=== PATIENT | female | born 1950 | race Caucasian/White ===

== ENCOUNTER 2020-06-06 01:52 | Outpatient (CLI) | payer MEDICARE, OTHER, SELFPAY ==
[2020-06-06 18:09] LABS: SARS-CoV-2 RNA PCR Negative
== END 2020-06-06 01:53 | disposition home or self-care (01) ==
LOC: ANHCOVIDDT 01:53
PROVIDERS: PCP Family Medicine; Visit Provider Otolaryngology
DX: Z01.818 Encounter for other preprocedural examination (principal); Z11.59 Encounter for screening for other viral diseases
CPT/HCPCS: 87635; C9803; U0003

== ENCOUNTER 2020-06-09 03:08 | Day surgery (SDC) | payer MEDICARE, OTHER, SELFPAY ==
--- NOTE | 2020-06-03 06:57 | PM.HPGS ---
History of Present Illness History of Present Illness Consent: Risks, benefits, and alternatives have been discussed and questions answered. Patient agrees to proceed with procedure. Chief complaint: Tongue Lesion Narrative: Bethany Hummel is a 69 year old female she has a rounded the lesion on the tip of the right side of her tongue Review of Systems Review of Systems: All systems reviewed & are unremarkable except as noted in HPI and below PMFSH Social History Social History Social History: The patient is and lives with her spouse in [place]. She is a retired mental health therapist. She designates her , Kaz, as her surrogate decision maker and she wishes to be a full code. Her primary care provider is Dr. Marina Elder. She is a lifelong nonsmoker and denies alcohol and drug abuse. Meds Home Medications and Allergies Home Medications Medication Instructions Recorded Confirmed Type Dulera 2 puff INHALATION HS 10/15/19 10/30/19 History Fish Oil Extra Strength 2 cap PO DAILY 10/15/19 10/30/19 History Multiple Vitamin, Womens 0.5 tablet PO DAILY 10/15/19 10/30/19 History PreserVision AREDS-2 1 tablet PO BID 10/15/19 10/30/19 History albuterol sulfate [ProAir HFA] 2 puff INHALATION PRN PRN 10/15/19 10/30/19 History cholecalciferol (vitamin D3) 5,000 unit PO DAILY 10/15/19 10/30/19 History cranberry 400 mg PO BID 10/15/19 10/30/19 History fluticasone propionate 2 spray INTRANASAL DAILY 10/15/19 10/30/19 History glucosamine sulfate [Glucosamine] 500 mg PO BID 10/15/19 10/30/19 History melatonin 5 mg PO HS 10/15/19 10/30/19 History montelukast [Singulair] 10 mg PO HS 10/15/19 10/30/19 History policosanol combination no.3 20 mg PO DAILY 10/15/19 10/30/19 History rosuvastatin 40 mg PO HS 10/15/19 10/30/19 History qbvfdzjnt-[id number]-KR-xcaemjyhuaq 50 cap PO DAILY 10/15/19 10/30/19 History vit B cplxC 10-blnxgtf-fay-Q10 1 tablet PO DAILY 10/15/19 10/30/19 History acetaminophen 1,000 mg PO Q6HR #90 tablet 10/31/19 Rx aspirin 325 mg PO Q12HR #90 tablet 10/31/19 Rx celecoxib [Celebrex] 200 mg PO BIDWM #90 cap 10/31/19 Rx oxycodone 5 mg PO Q4H #60 cap 10/31/19 Rx polyethylene glycol 3350 [Miralax] 17 g PO QAM #30 ea 10/31/19 Rx sennosides-docusate sodium [Senna 2 tab-cap PO BID #60 tablet 10/31/19 Rx with Docusate Sodium] levothyroxine 25 mcg tablet 25 mcg PO DAILY #90 tablet 02/24/20 Rx alprazolam 0.25 mg tablet 0.25 mg PO DAILY PRN #30 tablet 04/30/20 Rx Allergies Allergy/AdvReac Type Severity Reaction Status Date / Time No Known Allergies Allergy Verified 05/27/20 13:34 Assessment and Plan Additional Plan plan is for excision lesion tip of tongue and primary closure
[2020-06-04 12:31] VITALS: BMI 30.9
--- NOTE | 2020-06-09 06:23 | WPDHPUPDATE1 ---
History and Physical Update Update Date/Time: 06/09/20 06:23 History and Physical has been reviewed, including an updated exam of the patient. There are NO changes in the patient's condition. Risks, benefits, and alternatives have been discussed and questions answered. Patient agrees to proceed with procedure.
[2020-06-09 07:49] VITALS: BP 140/60; PULSE 61; TEMP 36.8; O2SAT 97
[2020-06-09] MEDS: LACTATED RINGERS 1,000 ML 30 ML IV CONT (08:11)
--- NOTE | 2020-06-09 08:58 | P.PNAN_ITS ---
Anes - Initial Pre Proc Eval Procedure: Operation Date: 06/09/20 09:30 Proposed Procedures p Excision Lesion Tongue - Alexis Samuel MD Date/Time: 06/09/20 08:58 Surgeon: Alexis Samuel MD Pre Op Diagnosis: Tongue Lesion Patient Data Age: 69 Gender: F Height: 5 ft 6 in Weight: 90.3 kg Last Vital Signs Temp 98.2 F 06/09/20 07:49 Pulse 61 06/09/20 07:49 BP 140/60 06/09/20 07:49 Pulse Ox 97 06/09/20 07:49 Allergies Allergy/AdvReac Type Severity Reaction Status Date / Time No Known Allergies Allergy Verified 06/04/20 12:17 Home Medications Medication Instructions Recorded Confirmed Type Dulera 2 puff INHALATION HS 10/15/19 06/09/20 History Fish Oil Extra Strength 2 cap PO DAILY 10/15/19 06/09/20 History Multiple Vitamin, Womens 0.5 tablet PO BID 10/15/19 06/09/20 History PreserVision AREDS-2 1 tablet PO BID 10/15/19 06/09/20 History albuterol sulfate [ProAir HFA] 2 puff INHALATION PRN PRN 10/15/19 06/09/20 History cholecalciferol (vitamin D3) 5,000 unit PO DAILY 10/15/19 06/09/20 History cranberry 400 mg PO BID 10/15/19 06/09/20 History fluticasone propionate 2 spray INTRANASAL DAILY 10/15/19 06/09/20 History glucosamine sulfate [Glucosamine] 500 mg PO BID 10/15/19 06/09/20 History melatonin 5 mg PO HS 10/15/19 06/09/20 History montelukast [Singulair] 10 mg PO HS 10/15/19 06/09/20 History rosuvastatin 40 mg PO HS 10/15/19 06/09/20 History wueucwqlr-[id number]-PM-mluizmvsajp 50 cap PO DAILY 10/15/19 06/09/20 History vit B cplxC [id number] 1 tablet PO DAILY 10/15/19 06/09/20 History levothyroxine 25 mcg tablet 25 mcg PO DAILY #90 tablet 02/24/20 06/09/20 Rx alprazolam 0.25 mg PO PRN PRN 06/04/20 06/09/20 History aspirin [Adult Low Dose Aspirin] 81 mg PO HS 06/04/20 06/09/20 History Patient hx anesthesia problems: none Family hx anesthesia problems: none [facility] Social History Social History Social History: The patient is and lives with her spouse in [place]. She is a retired mental health therapist. She designates her , Kaz, as her surrogate decision maker and she wishes to be a full code. Her primary care provider is Dr. Marina Elder. She is a lifelong nonsmoker and denies alcohol and drug abuse. Smoking status: Never smoker Alcohol intake: current Drinks per week: 4 Alcohol use details: WINE Living arrangements: with family Spiritual care concerns: No Anes - Eval Final PreProcedure Day of Procedure 06/09/20 08:58 Patient weight: obese Heart: regular rate and rhythm Lungs: clear to auscultation Airway: Mallampati scale class II Neurological: alert and oriented Last oral intake: >/= 8 hours ASA classification: III Emergent: no Anesthetic plan: proceed Anesthesia type and monitoring: general ETT and standard monitoring Informed Consent: The patient's anesthetic plan and its attendant risks and benefits were discussed with the patient/family/POA. Questions were solicited and answers provided to the satisfaction of the patient/family/POA.
[2020-06-09] MEDS: LIDO 1%/EPINEPHRINE 1:100,000 20 ML VIAL 4 ML INFILTRATE (09:41)
--- NOTE | 2020-06-09 09:46 | PM.PROC ---
Procedure Note - Detailed Date of procedure: 06/09/20 Pre-op diagnosis: Tongue Lesion Lesion of the tip of the tongue Post-op diagnosis: same Procedure performed: Procedure performed was excision lesion tip of tongue Description of procedure: Patient was prepped and draped in general anesthesia the tip of the tongue with the with what looked like a hematoma type cyst was injected with xylocaine with adrenaline with the Bovie at 20 this cyst was removed in its entirety hemostasis was obtained with electrocautery and closed with of 3 0 chromic sutures Preop diagnosis lesion tip of the tongue postop diagnosis same anesthesia general neighbor procedure excision tip of tongue lesion findings a cystic lesion tip of the tongue Anesthesia: GLMA Surgeon: Alexis Samuel MD Estimated blood loss (mL): 5 Drains: No Packing: No Pathology: yes Complications: No immediate complications Condition: stable Disposition: PACU Findings: He met hematoma type cyst tip of the tongue
[2020-06-09 09:52] VITALS: BP 131/55; PULSE 70; RESP 16; TEMP 36.3; O2SAT 99
[2020-06-09 10:00] VITALS: BP 111/61; PULSE 65; RESP 20; O2SAT 100
[2020-06-09 10:15] VITALS: BP 122/64; PULSE 53; RESP 14; O2SAT 97
[2020-06-09 10:18] VITALS: BP 136/73; PULSE 79; RESP 14
[2020-06-09 10:40] VITALS: BP 120/50; PULSE 65; RESP 14
== END 2020-06-09 11:00 | disposition home or self-care (01) ==
PROVIDERS: PCP Family Medicine; Visit Provider Otolaryngology
PROC: (CPT 40810; principal; 2020-06-09 09:30)
DX: K14.8 Other diseases of tongue (principal); Z79.82 Long term (current) use of aspirin; E66.9 Obesity, unspecified; Z68.32 Body mass index [BMI] 32.0-32.9, adult
CPT/HCPCS: 41112; 88305; A9270; J0330; J1100; J1200; J2405; J2704; J3010; J7120

== ENCOUNTER 2020-11-12 09:43 | Outpatient (CLI) | payer MEDICARE, OTHER, SELFPAY ==
--- NOTE | ~2020-11-12 | MM_ITS ---
EXAMINATION: MM screening [facility] BI w mata HISTORY: Screening mammogram TECHNIQUE: Craniocaudal and mediolateral oblique 3-D tomosynthesis images were obtained and synthetic 2-D images were generated. CAD analysis was submitted and interpreted. COMPARISON: 08/29/2019, 08/23/2019, 02/16/2018, 11/10/2015 BREAST PARENCHYMAL COMPOSITION: There are scattered areas of fibroglandular density. FINDINGS: There is stable focal asymmetry in the subareolar aspect of the left breast. There is no ev idence of suspicious mass, calcification, or architectural distortion to suggest malignancy in either breast. There has been no suspicious interval change. IMPRESSION: 1. No mammographic evidence of malignancy. 2. Recommend routine screening mammography in one year. BI-RADS Category 2: Benign finding(s). Reviewed, dictated and finalized at location A. R MACHINE OPERATOR
== END 2020-11-12 09:44 | disposition home or self-care (01) ==
PROVIDERS: PCP Family Medicine; Visit Provider Family Medicine
DX: Z12.31 Encounter for screening mammogram for malignant neoplasm of breast (principal)
CPT/HCPCS: 77063; 77067

== ENCOUNTER 2020-12-01 07:54 | Outpatient (CLI) | payer MEDICARE, OTHER, SELFPAY ==
--- NOTE | ~2020-12-01 | DEXA_ITS ---
Bone Density Report Name: Bethany Hummel Age: 69 Sex: Female Ethnicity: White Date of : 1950 Indication: osteopenia; prior fracture; asthma or emphysema; Referring Provider: Marina Elder Study: Bone densitometry was performed. Exam Date: December 01, 2020 Accession number: [id number] Bone Density: Region BMD T-score Z-score Classification AP Spine (L1, L2, L3) 1.014 0.0 1.9 Normal Femoral Neck (Left) 0.594 -2.3 -0.6 Osteopenia Total Hip (Left) 0.804 -1.1 0.3 Osteopenia Total Hip Bilateral Avg 0.800 -1.2 0.3 Osteopenia Femoral Neck (Right) 0.648 -1.8 -0.1 Osteopenia Total Hip (Right) 0.795 -1.2 0.2 Osteopenia World Health Organization criteria for BMD impression classify patients as: Normal (T-score at or above -1.0), Osteopenia (T-score between -1.0 and -2.5), or Osteoporosis (T-score at or below -2.5). 10-year Fracture Risk(1): Major Osteoporotic Fracture 19% Hip Fracture 3.8% Reported Risk Factors: [place] (), Neck BMD=0.594, BMI=33.0, previous fracture (1) FRAX(R) Version 3.08. Fracture probability calculated for an untreated patient. Fracture probability may be lower if the patient has received treatment. Previous Exams: Region Exam Age BMD T-score BMD Change BMD Change Date g/cm2 vs Baseline vs Previous AP Spine(L1, L2, L3) 12/01/2020 69 1.014 0.0 -0.115(-10.2%) 0.036(3.7%)* 02/16/2018 67 0.978 -0.4 -0.151(-13.4%) -0.151(-13.4%) 09/28/2004 53 1.128 1.0 Total Hip(Left) 12/01/2020 69 0.804 -1.1 -0.191(-19.2%) 0.003(0.4%) 02/16/2018 67 0.801 -1.2 -0.194(-19.5%) -0.194(-19.5%) 09/28/2004 53 0.995 0.4 Total Hip(Right) 12/01/2020 69 0.795 -1.2 -0.210(-20.9%) -0.087(-9.9%)* 02/16/2018 67 0.883 -0.5 -0.123(-12.2%) -0.123(-12.2%) 09/28/2004 53 1.006 0.5 *Denotes significance at 95% confidence level, LSC for AP Spine = 0.022 g/cm2, LSC for Total Hip = 0.027 g/cm2 Clinical Information Provided by Patient: Has had a low trauma fracture Has used the following medications: Vitamin D Has the following medical conditions: Asthma or Emphysema Patient maximum height was 65 Menopause Age: 51 Drinks caffeinated beverages Onset of menses at age 15 Number of children 2 Impression: The patient has low bone mass, based on the Left Femoral Neck T-score. The patient has an estimated ten-year risk of hip fracture of 3.8% and an estimated ten-year risk of major fracture of 19%, based
== END 2020-12-01 07:55 | disposition home or self-care (01) ==
LOC: ANHIMG 07:57
PROVIDERS: PCP Family Medicine; Visit Provider Family Medicine
DX: Z78.0 Asymptomatic menopausal state (principal); M16.0 Bilateral primary osteoarthritis of hip
CPT/HCPCS: 77080

== ENCOUNTER 2020-12-02 07:13 | Outpatient (CLI) | payer MEDICARE, OTHER, SELFPAY ==
--- NOTE | 2021-01-11 09:39 | WPDHOMESLEEP ---
Sleep Study - Home Unattended Date of Study: 12/02/20 Ordering Provider: Marina Elder MD Interpreting Physician: Lucila Stephens MD Home Sleep Study Type: Apnea Link Air Height: 1.65 m Weight: 86.183 kg Body Mass Index: 31.6 Neck Circumference (inches): 16 [place]: 11 Reason for Sleep Study Poor quality sleep, loud snoring Sleep History Lauren Hummel is a 70 year old female with a history of making funny noises while sleeping, per her . She does not feel rested on waking. She has difficulty falling asleep and staying asleep. This has been more noticeable in the last 3 months. She frequently snores and is frequently loud enough that others complain about it. She occasionally awakens at night with heartburn, belching or coughing. She occasionally awakens from sleep feeling short of breath. She occasionally has trouble sleep with a cold. She rarely wakes up gasping for breath at night. She occasionally has breathing problems at night observed by others. She rarely sweats excessively at night. She does not notice her heart pounding or beating irregularly at night. She occasionally falls asleep during the day, never involuntarily or while driving. She does not have loss of muscle tone with strong emotion. She does not have daytime difficulties due to excessive sleepiness, currently is retired. She does not feel paralyzed on waking or falling asleep. She rarely has vivid dreamlike scenes upon awakening or falling asleep. She is not afraid to go to sleep. She does not have nightmares. She occasionally remembers her dreams. She occasionally has racing thoughts. She rarely feels sad or depressed. She occasionally has anxiety. She rarely has muscular tension. She never notices parts of her body jerking. She does not kick at night and does not have crawling or aching feelings in her legs at night. She does not have any kind of leg pain at night. She does not wake up with morning jaw pain and does not grind her teeth during sleep. She rarely is bothered by pain during the day. She is not awakened by pain at night. She occasionally wakes up feeling stiff in the morning. She rarely wakes with sore or achy muscles. She occasionally has pain in the neck and spine. Normal bedtime is 10:00 p.m. falling asleep within 30 minutes waking 2-4 times at night to urinate. She is able to return to sleep in 15-20 minutes. she wakes in the morning at 6:00 a.m.. She estimates 6-8 hours of sleep normally. She takes naps in the afternoon or evening. She may feel refreshed after a 10 or 15 minute nap. She feels better in the afternoon compared other times a day. Habits: Never smoked tobacco. Caffeine 1 per day. Alcohol 1 per day. No recreational drugs. [facility] Past Medical History Medical History Asthma Dyslipidemia Hypothyroidism Osteoarthritis Post-menopausal Surgical History Surgical History Status post appendectomy Status post total left knee replacement Status post total right knee replacement Status post tubal ligation Family History Family History Mother , Mother in 2018 at the age of 105. Family history of thyroid disease Family history of congestive heart failure Grandparent Cerebrovascular accident Father Malignant neoplasm of prostate Other Family history of congestive heart failure Social History Social History Social History: The patient is and lives with her spouse in [place]. She is a retired mental health therapist. She designates her , Kaz, as her surrogate decision maker and she wishes to be a full code. Her primary care provider is Dr. Marina Elder. She is a lifelong nonsmoker and denies alcohol and drug abuse. Smoking status: Never smoker Alcohol
[2021-01-11 09:59] VITALS: BMI 31.6
== END 2020-12-02 07:14 | disposition home or self-care (01) ==
LOC: ANHCSM 07:18
PROVIDERS: PCP Family Medicine; Visit Provider Family Medicine
DX: G47.33 Obstructive sleep apnea (adult) (pediatric) (principal)
CPT/HCPCS: 95806

== ENCOUNTER → 2021-01-26 00:43 | Outpatient (CLI) | payer MEDICARE, OTHER, SELFPAY ==
[2021-01-26 19:08] LABS: SARS-CoV-2 RNA PCR Negative
== END ==
PROVIDERS: PCP Family Medicine; Visit Provider Internal Medicine Critical Care Medicine
DX: Z01.812 Encounter for preprocedural laboratory examination (principal); Z20.822 Contact with and (suspected) exposure to COVID-19
CPT/HCPCS: C9803; U0003; U0005

== ENCOUNTER 2021-01-28 09:06 | Outpatient (CLI) | payer MEDICARE, OTHER, SELFPAY ==
--- NOTE | 2021-02-17 15:04 | WPDSLEEPSTUD ---
Sleep Study Ordering Provider: Crow Varner PA-C Interpreting Physician: Lucila Stephens MD Sleep Study Type: CPAP Titration Height: 1.63 m Weight: 86.183 kg Body Mass Index: 32.5 Neck Circumference (inches): 14 [place]: 6 Reason for Sleep Study Home Sleep Test using ApneaLink December 02, 2020 with AHI 16 and desaturation to 78%, here for CPAP titration. Sleep History Bethany Hummel is a 70 year old female with a prior home sleep test Dec 02, 2020 with an AHI 16 and desaturation to 78% with 98% of apneas scored as obstructive. She is here for CPAP titration. She has a history of making funny noises while sleeping, per her . She does not feel rested on waking. She has difficulty falling asleep and staying asleep. This has been more noticeable in the last 3 months. She frequently snores and is frequently loud enough that others complain about it. She occasionally awakens at night with heartburn, belching or coughing. She occasionally awakens from sleep feeling short of breath. She occasionally has trouble sleep with a cold. She rarely wakes up gasping for breath at night. She occasionally has breathing problems at night observed by others. She rarely sweats excessively at night. She does not notice her heart pounding or beating irregularly at night. She occasionally falls asleep during the day, never involuntarily or while driving. She does not have loss of muscle tone with strong emotion. She does not have daytime difficulties due to excessive sleepiness, currently is retired. She does not feel paralyzed on waking or falling asleep. She rarely has vivid dreamlike scenes upon awakening or falling asleep. She is not afraid to go to sleep. She does not have nightmares. She occasionally remembers her dreams. She occasionally has racing thoughts. She rarely feels sad or depressed. She occasionally has anxiety. She rarely has muscular tension. She never notices parts of her body jerking. She does not kick at night and does not have crawling or aching feelings in her legs at night. She does not have any kind of leg pain at night. She does not wake up with morning jaw pain and does not grind her teeth during sleep. She rarely is bothered by pain during the day. She is not awakened by pain at night. She occasionally wakes up feeling stiff in the morning. She rarely wakes with sore or achy muscles. She occasionally has pain in the neck and spine. Normal bedtime is 10:00 p.m. falling asleep within 30 minutes waking 2-4 times at night to urinate. She is able to return to sleep in 15-20 minutes. she wakes in the morning at 6:00 a.m.. She estimates 6-8 hours of sleep normally. She takes naps in the afternoon or evening. She may feel refreshed after a 10 or 15 minute nap. She feels better in the afternoon compared other times a day. Habits: Never smoked tobacco. Caffeine 1 per day. Alcohol 1 per day. No recreational drugs. [facility] Past Medical History Medical History Asthma Dyslipidemia Hypothyroidism Osteoarthritis Post-menopausal Surgical History Surgical History Status post appendectomy Status post total left knee replacement Status post total right knee replacement Status post tubal ligation Family History Family History Mother , Mother in 2018 at the age of 105. Family history of thyroid disease Family history of congestive heart failure Grandparent Cerebrovascular accident Father Malignant neoplasm of prostate Other Family history of congestive heart failure Social History Social History Social History: The patient is and lives with her spouse in [place]. 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
[2021-02-17 16:14] VITALS: BMI 32.5
== END 2021-01-28 09:07 | disposition home or self-care (01) ==
LOC: ANHCSM 09:07
PROVIDERS: PCP Family Medicine; Visit Provider Physician Assistant
DX: G47.33 Obstructive sleep apnea (adult) (pediatric) (principal)
CPT/HCPCS: 95811

== ENCOUNTER 2021-12-10 10:01 | Outpatient (CLI) | payer MEDICARE, OTHER, SELFPAY ==
--- NOTE | ~2021-12-10 | MM_ITS ---
EXAMINATION: MM screening [facility] BI w mata HISTORY: Screening TECHNIQUE: Craniocaudal and mediolateral oblique 3-D tomosynthesis images were obtained and synthetic 2-D images were generated. CAD analysis was submitted and interpreted. COMPARISON: Comparison to multiple prior studies sequentially, with oldest reviewed study dated 04/15. BREAST PARENCHYMAL COMPOSITION: There are scattered areas of fibroglandular density. FINDINGS: There is no evidence of suspicious mass, calcification, or architectural distortion to sugg est malignancy in either breast. There has been no suspicious interval change. IMPRESSION: 1. No mammographic evidence of malignancy. 2. Recommend routine screening mammography in one year. BI-RADS Category 1: Negative Reviewed, dictated and finalized at location A. MAKER
== END 2021-12-10 10:02 | disposition home or self-care (01) ==
LOC: ANHIMG 10:02
PROVIDERS: PCP Family Medicine; Visit Provider Physician Assistant
DX: Z12.31 Encounter for screening mammogram for malignant neoplasm of breast (principal)
CPT/HCPCS: 77063; 77067

== ENCOUNTER 2022-12-07 09:48 | Outpatient (CLI) | payer MEDICARE, SELFPAY ==
--- NOTE | 2023-01-05 19:35 | WPDSLEEPSTUD ---
Sleep Study Date of Study: 12/07/22 Ordering Provider: Latonia Paniagua MD Interpreting Physician: Lucila Stephens MD Sleep Study Type: BiPAP Titration Height: 1.63 m Weight: 86.183 kg Body Mass Index: 32.5 Neck Circumference (inches): 14 [place]: 6 Reason for Sleep Study History of obstructive sleep apnea * home sleep test December 02, 2020, AHI was 16 a desaturation is 78% and a CPAP titration on January 28, 2021 optimal pressure BiPAP 15/11 with a small ResMed AirFit F30 I fullface mask. 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 She is breathing much better. She is feeling uncomfortable using her BiPAP since the surgery. She has also lost weight. Sleep History Bethany Hummel is a 72-year-old woman with a history of a home sleep test December 02, 2020, AHI was 16 a desaturation is 78% and a CPAP titration on January 28, 2021 optimal pressure BiPAP 15/11 with a small ResMed AirFit F30 I fullface mask. She had recent surgery for larygneal stenosis. She is breathing much better. She is feeling uncomfortable using her BiPAP since the surgery. She has also lost weight, so she may need lower pressures. She rarely awakens from sleep feeling short of breath. She occasionally awakens at night with heartburn, belching or coughing. She rarely snores, rarely snores loudly enough that others complain about it. She rarely has difficulty sleeping with a cold. She rarely wakes up gasping for breath at night. She occasionally has breathing problems at night observed by others. She rarely sweats excessively at night. She rarely notices her heart pounding or beating irregularly at night. She occasionally falls asleep during the day, but never involuntarily or while driving. She does not have loss of muscle tone with strong emotion. She does not have daytime difficulties due to excessive sleepiness. She rarely feels paralyzed on waking or falling asleep. She rarely has vivid dreamlike scenes on waking or falling asleep. She does not feel afraid to go to sleep. She rarely has nightmares. She frequently remembers her dreams. She occasionally has racing thoughts. She rarely feels sad or depressed. She rarely has anxiety or muscular tension. She occasionally notices parts of her body jerking. She occasionally kicks at night. She rarely has crawling and aching feelings in her legs. She rarely has any kind of leg pain at night. She does not have morning jaw pain. She rarely grinds her teeth during sleep. She occasionally is bothered by pain during the day. She rarely is awakened by pain at night. She occasionally wakes up feeling stiff in the morning with sore achy muscles. She rarely wakes up with pain in the neck and spine. Her normal bedtime is 10:30 p.m., falling asleep within 30 minutes, typically awaken 2-3 times at night for unclear reasons. She is able to return to sleep within about 15 minutes. She gets up in the morning at 6:30 a.m.. Her schedule on the weekend is the same. She estimates getting between 6 and 8 hours of sleep at night. Habits:? Never smoked tobacco.? Caffeine 1 per day.? Alcohol 1 per day.? No recreational drugs. [facility] Past Medical History Medical History Asthma Dyslipidemia Hypothyroidism Laryngeal stenosis Surgical correction 2021 KAREY treated with BiPAP Osteoarthritis Post-menopausal Surgical History Surgical History Status post appendectomy Status post total left knee replacement Status post total right knee replacement Status post tubal ligation Family History Family History Mother , Mother in 2018 at the age of 105. Family history of thyroid disease Family history of congestive heart failure Grandparent Cerebrovascular accident Father Malignant neoplasm of prostate Other Family history of congestive heart failure Social
[2023-01-05 19:39] VITALS: BMI 32.5
== END 2022-12-08 06:56 | disposition home or self-care (01) ==
LOC: ANHCSM 09:48
PROVIDERS: PCP Family Medicine; Visit Provider Family Medicine
DX: G47.33 Obstructive sleep apnea (adult) (pediatric) (principal); J38.6 Stenosis of larynx
CPT/HCPCS: 95811